=== PATIENT | male | born 1990 | race Caucasian/White ===

== ENCOUNTER 2018-04-02 15:52 | Emergency (ER) | payer OTHER ==
[~2018-04-02] VITALS: Ht 175.3 cm; Wt 150.0 kg
[2018-04-02 16:18] VITALS: BP 174/84; PULSE 92; RESP 24; TEMP 98.6; O2SAT 98
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
[2018-04-02] MEDS ORDERED: PROPOFOL 200 MG/20 ML AMP IV ONE (17:30)
[2018-04-02] MEDS ORDERED: MORPHINE SULFATE 4 MG/ML INJ IV PUSH ONE (17:30)
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
[2018-04-02 18:00] VITALS: O2SAT 100
[2018-04-02 18:07] VITALS: BP 161/76; PULSE 88; RESP 20; O2SAT 100
--- NOTE | 2018-04-02 18:26 | RADRPT ---
EXAM DATE/TIME: 04/02/2018 18:06 [facility] COMPARISON: SHOULDER RIGHT LTD (2VWS), April 02, 2018, 16:53. INDICATIONS : Post reduction. MEDICAL HISTORY : None. SURGICAL HISTORY : None. ENCOUNTER: Initial ACUITY: 1 day PAIN SCORE: 0/10 LOCATION: Right shoulder. FINDINGS: Examination of the right shoulder status post reduction film reveals subluxation. Fracture fragment n ot well-seen.. No foreign body is identified. CONCLUSION: 1. The shoulder still appears to be subluxed as this is a limited study. Lawrence García MD on April 02, 2018 at 18:22 Board Certified Radiologist. This report was verified electronically.
--- NOTE | 2018-04-02 19:03 | RADRPT ---
EXAM DATE/TIME: 04/02/2018 18:45 [facility] COMPARISON: SHOULDER RIGHT LTD (2VWS), April 02, 2018, 16:53. INDICATIONS : Post reduction of right shoulder. MEDICAL HISTORY : None. SURGICAL HISTORY : None. ENCOUNTER: Subsequent ACUITY: 1 day PAIN SCORE: 4/10 LOCATION: Right shoulder. FINDINGS: Two view examination of the right shoulder demonstrates relocation of the shoulder joint. Fracture fr agment not well-seen CONCLUSION: Normal anatomic alignment post reduction views. Lawrence García MD on April 02, 2018 at 19:00 Board Certified Radiologist. This report was verified electronically.
[2018-04-02 19:21] LABS: AUTOMATED NEUTROPHIL # 14.5 TH/MM3 (1.8-7.7); BASOPHIL # 0.3 TH/MM3 (0-0.2); BASOPHIL % 1.8 % (0.0-2.0); EOSINOPHIL # 0.1 TH/MM3 (0-0.4); EOSINOPHIL % 0.5 % (0.0-4.0); HEMATOCRIT 46.2 % (39.0-51.0); HEMOGLOBIN 15.4 GM/DL (13.0-17.0); LYMPH % 8.5 % (9.0-44.0); LYMPHOCYTE # 1.4 TH/MM3 (1.0-4.8); MEAN CELL VOLUME 86.5 FL (80.0-100.0); MEAN CORPUSCULAR HEMOGLOBIN 28.8 PG (27.0-34.0); MEAN CORPUSCULAR HGB CONC 33.2 % (32.0-36.0); MEAN PLATELET VOLUME 8.1 FL (7.0-11.0); MONOCYTE # 0.5 TH/MM3 (0-0.9); NEUT % 86.2 % (16.0-70.0); PLATELET COUNT 276 TH/MM3 (150-450); RED BLOOD COUNT 5.34 MIL/MM3 (4.50-5.90); RED CELL DISTRIBUTION WIDTH 14.5 % (11.6-17.2); WHITE BLOOD COUNT 16.9 TH/MM3 (4.0-11.0)
[2018-04-02 19:38] LABS: BICARBONATE 22.4 MEQ/L (21.0-32.0); CALCIUM 9.2 MG/DL (8.5-10.1); CREATININE 1.09 MG/DL (0.60-1.30)
[2018-04-02] MEDS ORDERED: TYLE325T PO (20:08)
== END 2018-04-02 20:43 | disposition home or self-care (01) ==
LOC: NEPD 15:52
DX: S43.004A Unspecified dislocation of right shoulder joint, initial encounter (principal); X58.XXXA Exposure to other specified factors, initial encounter; Z88.0 Allergy status to penicillin
CPT/HCPCS: 23650; 73020; 73030; 80048; 85025; 96374; 96375; 99284; J2270